=== PATIENT | male | born 1960 | race Caucasian/White ===

== ENCOUNTER → 2016-11-12 | Outpatient (CLI) | payer MEDICARE, OTHER | LOC: US 05-14 13:00 | DX: D37.030 Neoplasm of uncertain behavior of the parotid salivary glands (principal); R22.1 Localized swelling, mass and lump, neck | CPT/HCPCS: 76536 ==

== ENCOUNTER 2021-11-02 13:36 | Emergency (ER) | payer MEDICARE, OTHER ==
[2021-11-02 14:08] LABS: RED BLOOD COUNT 4.89 M/UL (4.20-5.50); WHITE BLOOD COUNT 4.9 K/UL (4.5-11.0)
[2021-11-02 14:36] LABS: BUN/CREATININE RATIO 15 (0-10)
== END 2021-11-02 16:48 | disposition left against medical advice (07) ==
LOC: ER1 13:36
DX: R10.9 Unspecified abdominal pain (principal)
CPT/HCPCS: 80053; 82550; 82553; 83605; 83690; 84484; 85025; 99281